=== PATIENT | male | born 1995 ===

== ENCOUNTER 2024-12-03 13:23 | Emergency (ER) | payer SELFPAY ==
[2024-12-03 13:42] VITALS: BP 134/93; PULSE 72; RESP 16; TEMP 37.1; O2SAT 100
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
[2024-12-03 16:44] VITALS: BP 130/80; PULSE 77; RESP 16; TEMP 37.1; O2SAT 98
== END 2024-12-03 16:44 | disposition home or self-care (01) ==
PROVIDERS: Emergency Provider Emergency Medicine
DX: G44.209 Tension-type headache, unspecified, not intractable (principal); V43.52XA Car driver injured in collision with other type car in traffic accident, initial encounter
CPT/HCPCS: 99283

== ENCOUNTER 2025-06-25 14:33 | Emergency (ER) | payer OTHER, SELFPAY ==
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
[2025-06-25 14:50] VITALS: BP 136/82; PULSE 79; RESP 16; TEMP 36.6; O2SAT 100
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
== END 2025-06-25 16:10 | disposition home or self-care (01) ==
LOC: ANHED 16:00
DX: S16.1XXA Strain of muscle, fascia and tendon at neck level, initial encounter (principal); V43.52XA Car driver injured in collision with other type car in traffic accident, initial encounter
CPT/HCPCS: 72125; 99284